=== PATIENT | female | born 1985 | race Caucasian/White ===

== ENCOUNTER → 2020-08-24 | Outpatient (CLI) | payer OTHER ==
[~2020-08-24] MED LIST: GEOD20CA PO; OMEP10CASR PO; PROP60TA14 PO; PROZ40CA PO; TOPA50TA8 PO
== END ==
LOC: EDUNIT# 10:55 → M LABSMTC 11:11
PROVIDERS: ATTEND Anesthesiology
DX: Z20.828 Contact with and (suspected) exposure to other viral communicable diseases (principal)

== ENCOUNTER 2020-08-29 07:52 | Day surgery (SDC) | payer OTHER ==
[~2020-08-29] VITALS: Ht 154.9 cm; Wt 88.4 kg
[~2020-08-29 07:52] MED LIST changes: +NS 1,000 ML IV ONE
--- NOTE | 2020-08-29 09:31 | ROOR ---
Patient Name: Lilibeth Shankar Procedure Date: 08/29/2020 9:11 AM Date of : 1985 Age: 35 Room: [facility] Gender: Female Note Status: Finalized Procedure: Upper Endoscopy + Biopsies Indications: Epigastric abdominal pain, Diarrhea Providers: Bandar Bardales MD Referring MD: Katrina Bailey Requesting Provider: Medicines: Monitored Anesthesia Care Complications: No immediate complications. Procedure: Pre-Anesthesia Assessment: - The heart rate, respiratory rate, oxygen saturations, blood pressure, adequacy of pulmonary ventilation, and response to care were monitored throughout the procedure. The Endoscope was introduced through the mouth, and advanced to the second part of duodenum. The upper GI endoscopy was accomplished without difficulty. The patient tolerated the procedure well. Findings: The Z-line was regular and was found 38 cm from the incisors. Evidence of a gastric bypass was found. A gastric pouch with a medium size was found. Biopsies for histology were taken with a cold forceps for evaluation of celiac disease. Biopsies for histology were taken with a cold forceps for evaluation of celiac disease. Biopsies were taken with a cold forceps for Helicobacter pylori testing. The exam of the duodenum was otherwise normal. The exam was otherwise without abnormality. Impression: - Z-line regular, 38 cm from the incisors. - Gastric bypass with a medium-sized pouch. Biopsied. - The examination was otherwise normal. Recommendation: - Patient has a contact number available for emergencies. The signs and symptoms of potential delayed complications were discussed with the patient. Return to normal activities tomorrow. Written discharge instructions were provided to the patient. - High fiber diet. - Discharge patient to home. - Continue present medications. - Await pathology results. - Telephone GI clinic for pathology results in 1 week. - Return to referring physician. - The findings and recommendations were discussed with the patient. Bandar Bardales MD Bandar Bardales MD 08/29/2020 9:31:06 AM Electronically signed by Bandar Bardales MD Number of Addenda: 0 Note Initiated On: 08/29/2020 9:11 AM Estimated Blood Loss: Estimated blood loss: none.
--- NOTE | 2020-08-29 09:50 | ROOR ---
Patient Name: Lilibeth Shankar Procedure Date: 08/29/2020 9:12 AM Date of : 1985 Age: 35 Room: [facility] Gender: Female Note Status: Finalized Procedure: Total Colonoscopy to Cecum + ileoscopy + Bx Indications: Clinically significant diarrhea of unexplained origin Providers: Bandar Bardales MD Referring MD: Katrina Bailey Requesting Provider: Medicines: Monitored Anesthesia Care Complications: No immediate complications. Procedure: Pre-Anesthesia Assessment: - The heart rate, respiratory rate, oxygen saturations, blood pressure, adequacy of pulmonary ventilation, and response to care were monitored throughout the procedure. The Colonoscope was introduced through the anus and advanced to the terminal ileum, with identification of the appendiceal orifice and IC valve. The colonoscopy was performed without difficulty. The patient tolerated the procedure well. The quality of the bowel preparation was excellent. Findings: The perianal and digital rectal examinations were normal. Non-bleeding internal hemorrhoids were found during retroflexion. The hemorrhoids were small and Grade I (internal hemorrhoids that do not prolapse). No other significant abnormalities were identified in a careful examination of the remainder of the colon. The terminal ileum appeared normal. Biopsies for histology were taken with a cold forceps from the ascending colon, transverse colon and descending colon for evaluation of microscopic colitis. The exam was otherwise without abnormality on direct and retroflexion views. Impression: - Non-bleeding internal hemorrhoids. - The examined portion of the ileum was normal. - The examination was otherwise normal on direct and retroflexion views. - Biopsies were taken with a cold forceps from the ascending colon, transverse colon and descending colon for evaluation of microscopic colitis. - The exam was otherwise normal to the cecum. Recommendation: - Patient has a contact number available for emergencies. The signs and symptoms of potential delayed complications were discussed with the patient. Return to normal activities tomorrow. Written discharge instructions were provided to the patient. - High fiber diet. - Discharge patient to home. - Continue present medications. - Await pathology results. - Telephone GI clinic for pathology results in 1 week. - Return to referring physician. - The findings and recommendations were discussed with the patient. Bandar Bardales MD Bandar Bardales MD 08/29/2020 9:50:07 AM Electronically signed by Bandar Bardales MD Number of Addenda: 0 Note Initiated On: 08/29/2020 9:12 AM Estimated Blood Loss: Estimated blood loss: none.
[2020-08-29] MEDS ORDERED: LIDOCAINE 2% 100MG/5ML SDV (FOR ANES.) As Ordered ONE (09:55)
[2020-08-29] MEDS ORDERED: ONDANSETRON 4MG/2ML VIAL As Ordered ONE (09:55)
[2020-08-29] MEDS ORDERED: METOPROLOL 5 MG/5 ML VIAL As Ordered ONE (09:55)
[2020-08-29] MEDS ORDERED: propofoL 200 MG/20 ML VIAL As Ordered ONE (09:55)
[2020-08-29 10:32] VITALS: BP 108/57
== END 2020-08-29 10:35 | disposition home or self-care (01) ==
LOC: M OPP 07:52
PROVIDERS: ATTEND Internal Medicine Gastroenterology
DX: K64.0 First degree hemorrhoids (principal); R19.7 Diarrhea, unspecified; Z98.84 Bariatric surgery status; R10.13 Epigastric pain; I44.7 Left bundle-branch block, unspecified; Z79.899 Other long term (current) drug therapy; Z86.718 Personal history of other venous thrombosis and embolism
CPT/HCPCS: 43239; 45380; 88305; J2405